=== PATIENT | female | born 2005 | race African-American/Black ===

== ENCOUNTER 2025-09-19 03:48 | Emergency (ER) | payer MEDICAID ==
[~2025-09-19] VITALS: Ht 167.6 cm; Wt 60.0 kg
[2025-09-19 03:58] VITALS: O2SAT 99
[2025-09-19 04:53] LABS: BASOPHILS % 1.0 % (0.0-2.0); EOSINOPHILS % 5.2 % (0.0-5.0); HEMATOCRIT. 34.6 % (36.0-48.0); HEMOGLOBIN. 11.0 g/dL (12.0-16.0); LYMPHOCYTES % 42.3 % (20.0-50.0); MEAN PLATELET VOLUME 11.3 fl (7.4-10.4); MONOCYTES % 7.7 % (2.0-8.0); NEUTROPHILS % 43.8 % (40.0-76.0); PLATELET 230 x1000/uL (130-400); RED BLOOD CELL COUNT 4.68 mill/uL (4.2-5.4); RED CELL DISTRIBUTION WIDTH 17.4 % (11.6-14.6)
[2025-09-19 05:05] LABS: CREATININE 1.0 mg/dL (0.6-1.0)
[2025-09-19 05:06] LABS: TROPONIN I HIGH SENSITIVITY < 4 ng/L (3.0-34); UREA NITROGEN BLOOD 12 mg/dL (9-23)
[2025-09-19 08:38] LABS: TROPONIN I HIGH SENSITIVITY < 4 ng/L (3.0-34)
[2025-09-19] MEDS ORDERED: IBUP-2028 PO (09:04)
[2025-09-19 09:48] VITALS: BP 121/70; PULSE 69; RESP 18; TEMP 36.9; O2SAT 99
== END 2025-09-19 09:49 | disposition home or self-care (01) ==
LOC: ER 03:48
DX: R07.81 Pleurodynia (principal)
CPT/HCPCS: 80048; 85025; 85379; 84484; 36415; 71045; 93005; 99285; Z7610